=== PATIENT | male | born 1945 | race Caucasian/White ===

== ENCOUNTER → 2016-06-06 16:01 | Outpatient (CLI) | payer MEDICARE, OTHER ==
[2016-02-05 05:32] VITALS: BMI 30.2
[~2016-06-06 16:01] MED LIST: ACULAR 0.5 % OPH5 ML RIGHT EYE; BAYER CHEWABLE81 MG PO; IPRAT-ALBUT 0.5-3 ML UPD; PREDNISOLONE 110 ML RIGHT EYE; PROVENTIL HFA6.7 GM INH; SYMBICORT 16010.2 GM INH; ULTRAM50 MG PO
== END | disposition home or self-care (01) ==
LOC: D.CT 16:01
DX: R93.1 Abnormal findings on diagnostic imaging of heart and coronary circulation (principal)

== ENCOUNTER 2016-06-14 05:56 | Inpatient (IN) | payer MEDICARE, OTHER ==
[2016-06-13 14:50] LABS: HEMATOCRIT 50.2 % (42.0-54.0); HEMOGLOBIN 16.6 g/dL (13.5-17.5); MCH 31.4 pg (26.0-34.0); MCHC 33.1 g/dL (31.0-37.0); MCV 95.1 fL (80.0-100.0); MEAN PLATELET VOLUME 10.1 fL (7.4-10.4); RBC 5.28 10x6/uL (4.20-6.10); RDW 13.5 % (11.5-14.5); WBC 6.6 10x3/uL (4.8-10.8)
[2016-06-13 15:06] LABS: APPEARANCE CLEAR (CLEAR); BILIRUBIN NEGATIVE (NEGATIVE); COLOR YELLOW (YELLOW); GLUCOSE NEGATIVE (NEGATIVE); KETONE NEGATIVE (NEGATIVE); LEUKOCYTE ESTERASE NEGATIVE (NEGATIVE); NITRITE NEGATIVE (NEGATIVE); PROTEIN TRACE mg/dL (NEGATIVE); UROBILINOGEN NORMAL (NORMAL)
[2016-06-13 15:11] LABS: APTT 41.6 SECONDS (22.8-39.4); INR 1.13 (0.85-1.17); PROTIME 14.4 SECONDS (11.6-15.0)
[2016-06-13 15:14] LABS: ALBUMIN 3.9 g/dL (3.4-5.0); ANION GAP 10.1 mmol/L (8-16); BILIRUBIN - TOTAL 0.46 mg/dL (0.2-1.3); CALCIUM 8.6 mg/dL (8.5-10.1); CARBON DIOXIDE 30.7 mmol/L (21.0-32.0); CREATININE - SERUM 1.8 mg/dL (0.6-1.3); POTASSIUM - SERUM 4.8 mmol/L (3.5-5.1); PROTEIN - SERUM 7.5 g/dL (6.4-8.2)
[2016-06-14] VITALS (57 sets, daily range): BP systolic 100–149; BP diastolic 65–89; Ht 180.3 cm; Wt 99.1 kg
[~2016-06-14] VITALS: Ht 180.3 cm; Wt 99.1 kg
[~2016-06-14 05:56] MED LIST changes: -ACULAR 0.5 % OPH5 ML RIGHT EYE; -ULTRAM50 MG PO
--- NOTE | 2016-06-14 12:00 | NUR ---
FAMILY AT THE BEDSIDE AND UPDATED. PT VOICES NO CO AT TIME.
--- NOTE | 2016-06-14 13:47 | NUR ---
* Is the patient Alert and Oriented? Yes 0 * How many steps to enter\exit or inside your home? 1/2 STEP 0 * PCP DR PAK 0 * [facility] [address] * Preadmission Environment Home with Family 0 * ADLs Independent 0 * Equipment Nebulizer 0 * Other Equipment PATENT STATES HE BOUGHT HIS NEBULIZER 0 * List name and contact numbers for known caregivers / representatives who currently or will assist patient after discharge: SPOUSE: PARMJIT BAINS [phone] * Community resources currently utilized None 0 * Additional services required to return to the preadmission environment? No 0 * Can the patient safely return to the preadmission environment? Yes 0 * Has this patient been hospitalized within the prior 30 days at any hospital? No 0 Grand Total: 0 PATIENT STATES HE LIVES AT HOME WITH HIS , PARMJIT. HE IS INDEPENDENT IN HIS ADL'S. PATIENT STATES HIS PCP IS DR. PAK. HE GETS HIS MEDS FROM [facility] ON [address] PATIENT STATES HE HAS AN UPDRAFT MACHINE THAT HE PURCHASED. THERE IS ONLY 1/2 STEP TO ENTER HIS HOME. NO DISCHARGE NEEDS IDENTIFIED AT THIS TIME.
--- NOTE | 2016-06-14 15:00 | NUR ---
FAMILY AT BEDSIDE AND UPDATED.
[2016-06-14] MEDS ORDERED: ACULAR 0.5 % OPH5 ML RIGHT EYE (15:25)
--- NOTE | 2016-06-14 17:00 | NUR ---
SLEEPING NO DISTRESS NOTED. SR UP X 2. CALL LIGHT WITHIN REACH.
--- NOTE | 2016-06-14 19:45 | NUR ---
REPORT RECIEVED. ASSESSMENT COMPLETE PER PATRIZIA YIPT. VSS. PT AWAKE ALERT ORIENTED X4. O2 VIA NC 2L O2 SAT 98% RR 16 REGULAR STRONG PRODUCTIVE COUGH PRESENT BILAT ALL LOBES CLEAR. HEART S1S2 HR 90 NSR. BP 128/77 VIA R RADIAL ART LINE WITH GOOD WAVE FORM EXTREMETY PINK WITH GOOD SENSATION WRIST PROTECTOR ON. BS ACTIVE X4 NON TENDER. NO EDEMA X4 EXTREMETIES BILAT PEDAL PULSES PALP +2. BILAT TEDS SCD'S ON. R NECK YURIY DRAIN NOTED MINIMAL BLOODY DRAINAGE NOTED DRSG CDI SECURED. L SUBCLAV CVL PATENT REFER TO FLOW SHEET FOR INFUSIONS. VSS WILL CONTINUE TO MONITOR.
--- NOTE | 2016-06-14 21:16 | NUR ---
VSS NO NEW CHANGES NO VISITORS AT THIS TIME. WILL CONTINUE TO MONITOR.
--- NOTE | 2016-06-14 23:22 | NUR ---
REASSESSMENT COMPLETE PER FLOW SHEET. VSS WILL CONITNUE TO MONITOR.
[2016-06-15] VITALS (31 sets, daily range): BP systolic 102–150; BP diastolic 53–87
--- NOTE | 2016-06-15 01:20 | NUR ---
PRN TRAMADOL GIVEN FOR BACK PAIN. DENIES FURTHER NEEDS. WILL CONTINUE TO MONITOR.
--- NOTE | 2016-06-15 07:45 | NUR ---
ASSESSMENT PER FLOWSHEET DR SARKAR HERE. NEW ORDERS OBTAINED,
--- NOTE | 2016-06-15 13:00 | NUR ---
CVL DCD PER ORDER INSTRUCT PT TO LAY IN BED FOR 30 MINUTES TO ENSURE SITE DOES NOT BLEED.
[2016-06-15] MEDS ORDERED: ULTRAM50 MG PO (13:10)
--- NOTE | 2016-06-15 14:00 | NUR ---
DC INSTRUCTIONS GIVEN . VOICES NO QUESTIONS. DC INSTRUCTIONS GIVEN PER ROZINA ABOUT INCISION AND FU. RX FOR TRAMADOL GIVEN
--- NOTE | 2016-06-15 14:05 | NUR ---
LEFT VIA WC.
--- NOTE | 2016-06-18 13:50 | HP ---
PATIENT: ANNA BAINS MEDICAL RECORD: [id number] ACCOUNT: [id number] LOCATION:[facility] : 43 ADMISSION DATE: 06/14/16 HISTORY AND PHYSICAL EXAMINATION ANNA Hernandez (70yo, M) ID# [id number]. Date/Time06/09/2016 10:60XCBWA13/15/1944[facility] Dept.NPP_[place] [facility] ClinicProviderEDKYLAH SARKAR MDInsuranceMed Primary: [place] ([place]ARE) Insurance # : [id number] PCP : JENNIFER PAK Referring Provider Name : JENNIFER PAK Employer Name : [employer]\\ Med Secondary: [employer] (MEDICARE SUPPLEMENT) Insurance # : [id number] Referring Provider Name : JENNIFER PAK Employer Name : NONE Prescription: ARGSDIR - Member is eligible. Chief Complaint Followup: Thoracoabdominal aortic aneurysm Patient's Care Team Primary Care Provider (): JENNIFER PAK: [address] [place] [phone], , Referring Provider (): JENNIFER PAK: [address] [place] [phone], , Environmental Management Specialist: CHI CULLEN MD: [address] [place] [phone], , Patient's Pharmacies [place] [facility] (ERX): [address] [facility] [address], , [facility] [address] ([place]): [address] [facility] [address], , Vitals BP:120/60 sitting R arm 06/09/2016 11:06 amHR:80R/R 06/09/2016 11:06 amHt:5 ft 11 in 06/09/2016 10:51 amWt:218 lbs 06/09/2016 11:06 amBMI:30.4 06/09/2016 11:06 amAllergies Reviewed Allergies NKDAMedications Reviewed Medications Aspir- enteredKathy Wilsonipratropium-albuterol 0.5 mg-3 mg(2.5 mg base)/3 mL nebulization soln USE 1 VIAL IN NEBULIZER Q 6 H AND Q 4 H PRF CFFVRHRY35/10/16 filledsurescriptsprednisoLONE sodium phosphate 1 % eye drops05/03/16 filledArgOPEN Media TechnologiesSymbicort 160 mcg-4.5 mcg/actuation HFA aerosol inhaler Inhale 2 puff(s) twice a day by inhalation route.03/24/16 filledArgOPEN Media TechnologiestiZANidine 4 mg iabdoq57/22/16 filledArgLacrosse All Stars SystemsVentolin HFA 90 mcg/actuation aerosol inhaler Inhale 2 puff(s) every 4 hours by inhalation route as needed.03/24/16 [employer] Some medications listed in Documents: #[id number], #[id number] could not be added to this patient's chart. Please review these documents and add these medications to the patient's chart manually as needed. Vaccines Reviewed Vaccines Vaccine TypeDateAmt.RouteSiteLot #Mfr.Exp. DateDate HISTORY AND PHYSICAL [id number] ANNA BAINS on VISVIS GivenVaccinatorInfluenzainfluenza, high dose ehewxekv1290Ayielcbelzfbqcytdejsrnmx polysaccharide UQI2401/16/16pneumococcal conjugate PCV 13005/15/14Problems Reviewed Problems Polyp of colon Tobacco dependence syndrome Thoracoabdominal aortic aneurysm Smokers' cough Chronic obstructive lung disease Severe chronic obstructive pulmonary disease Multiple nodules of lung Dyspnea Family History Discussed Family History Mother- Malignant tumor of ovary ( age: 62) - Heart diseaseFather- Myocardial infarction ( age: 71)Brother- Hypertensive disorder ( age: 74) - [facility]- Cerebrovascular accident - LIVINGSocial History Discussed Social History Cardiology and General Family history of heart disease?: Y Smoking Status: Current every day smoker Smoker (1 PPD) High Cholesterol: Y Alcohol intake: None Caffeine intake: Occasional Surgical History Reviewed Surgical History tia 1998 Past Medical History Discussed Past Medical History Aneurysmn (specify): Y - Thoracic Heart Disease: Y - tia Notes: TIA 1998 Documents for Discussion N/A Screening None recorded. HPI Peripheral Vascular Disease Reported by patient. Location: back ("my lower back bothers me when I sit. I also have chest pain if I sit for a long time. I get nauseated and feel if I threw up I would feel better. Dr. Pak got the scan bec ause I was SOB."); " Quality: burning; "Dr. Cullen say last Monday f/u carotid doppler. CT done Monday. I don't know results. Dr. Cullen wants you to look at it." Severity: interferes with normal activity Onset/Timing: intermittent ("sitting") ROS ROS as noted in the HPI Physical Exam Patient is a 70-year-old male. HISTORY AND PHYSICAL [id number] ANNA BAINS Constitutional: General Appearance well nourished and developed and healthy-appearing. Level of Distress NAD. Ambulation ambulating normally. Cardiovascular: Apical Impulse not displaced or no thrill. Heart Auscultation normal s1 and s2; no murmurs, rubs, or gallops; and RRR. Arterial Pulses no abdominal aorta bruits, femoral bruits, or popliteal bruits and 2+ bilateral, carotid 2+ bilateral, femoral 2+ bilateral, popliteal 2+ bilateral, and dorsalis pedis diminished. Edema no edema and varicosities. Lungs: Repiratory Effort no dyspnea. Percussion no dullness or flatness and hyperresonance . Auscultation no wheezing, rhonchi, or rales / crackles and breathing sounds normal, good air movement, and CTA except as noted. Abdomen: Bowl Sounds normal. Inspection and Palpation no tenderness, guarding, masses, or rebound tenderness and soft and non-distended. Liver non-tender and no hepatomegaly. Spleen non-tender and no splenomegaly. Hernia none palpable. Ears, Nose, Throat: Hearing grossly normal hearing. Nose no external nose lesion. Lips, Teeth, and Gums no mouth or lip ulcers. Oropharynx: moist mucous membranes. Musculoskeletal System: Gait And Stance normal gait and stance. Digits and Nails normal nails and no cyanosis. Joints, Bones, and Muscles normal strength and movement of all extremities. Neurologic: Cranial Nerves grossly intact. Reflexes DTRs 2+ bilaterally throughout. Sensation grossly intact. Lymph Nodes: Lymph Nodes no cervical LAD, supraclavicular LAD, axillary LAD, or inguinal LAD. Eyes: Lids and Conjunctivae no discharge or pallor and non-injected. Pupils PERRLA. Cornea grossly intact. EOM EOMI. Lens clear. Sclerae non-icteric. Neck: Neck no masses or enlarged lymph nodes and supple, trachea midline, and carotid bruits (new Right carotid bruit). Thyroid no enlargement or nodules and non-tender. Skin: Inspection and Palpation no rash, lesions, ulcers, jaundice, or abnormal nevi. Assessment / Plan Right internal carotid artery stenosis severe Stable thoracoabdominal aneurysm 1. Bilateral carotid artery stenosis I65.23: Occlusion and stenosis of bilateral carotid arteries 2. Thoracoabdominal aortic aneurysm I71.6: Thoracoabdominal aortic aneurysm, without rupture Discussion Notes Patient would benefit from right carotid endarterectomy due to the severe ruptured plaque in his right carotid bulb and proximal internal carotid artery Continue medical therapy for thoracoabdominal aneurysm Macular degeneration is stable and Dr. Chavez cleared him for carotid endarterectomy Scheduled for next week right carotid endarterectomy HISTORY AND PHYSICAL [id number] BAINSANNA LOPEZ Return to Office to see Avery Sarkar MD at [facility] on or around 06/16/2016 Cj Chester MD for Office Visit 20 at [facility] on 10/19/2016 at 10:00 AM Avery Sarkar MD for Office Visit 15 at [facility] on 11/03/2016 at 09:00 AM Encounter Sign-Off Encounter signed-off by Avery Sarkar MD, 06/09/2016. AVERY SARKAR MD at 1350 CC: [id number] DICTATION DATE: 06/09/16 1045 GEOLOGICAL DRAFTER: KENNY 06/10/16 1505 DIS IN 06/15/16 [facility] [address] [place] [address]
--- NOTE | 2016-06-18 13:50 | OP ---
PATIENT NAME: ANNA BAINS MEDICAL RECORD: [id number] :41 LOCATION:[facility] D.2304 ADMISSION DATE:06/14/16 SURGEON: AYE SARKAR MD DATE OF OPERATION: 06/14/2016 SURGEON: Aye Sarkar MD ANESTHESIA: General endotracheal, Dr. Zapata. OPERATION PERFORMED: Right carotid endarterectomy with patch angioplasty. PREOPERATIVE DIAGNOSIS: Severe right internal carotid artery stenosis with ruptured plaque. POSTOPERATIVE DIAGNOSIS: Severe right internal carotid artery stenosis with ruptured plaque. INDICATION FOR OPERATION: Severe right internal carotid artery stenosis with ruptured plaque. FINDINGS AT OPERATION: There were no EEG changes with clamping or unclamping of the carotid artery. There was a large bulky ruptured plaque in the right carotid with debris within the ulceration. DESCRIPTION OF PROCEDURE: After informed consent, adequate preoperative medication and evaluation, the patient was brought to the operating room, placed on the table in the supine position. After induction of general endotracheal anesthesia and application of appropriate monitoring devices, the right neck and chest were prepped and draped in a sterile field, utilizing Betadine scrub, alcohol, and Betadine solution. A Betadine-impregnated drape was also used. An oblique incision was made in the skin crease. Dissection carried down the fascia. Hemostasis maintained with electrocautery. Facial vein was identified and divided. Utilizing sharp dissection, the common carotid, internal and external carotid arteries were dissected free from surrounding structures, protecting the neurological structures. The patient was given a calculated dose of heparin, after 3 minutes, clamps were applied. After 2 minutes, no EEG changes. The arteriotomy was made and extended with Harris scissors. Artery underwent endarterectomy sharply. Artery underwent extensive debridement and irrigation. Utilizing a vascular patch and running 7-0 Prolene, the arteriotomy was closed with patch angioplasty technique. All maneuvers to remove trapped air were performed. The clamps were removed sequentially. There were no EEG changes. The patient was given a calculated dose of protamine to reverse the heparin. Hemostasis was achieved, and a #7 Coy-Dueñas drain was left in the depth of wound and brought through the base of the neck. Neck was again irrigated. Instrument count and sponge count were correct times 2. Neck was closed in layers utilizing 3-0 Vicryl on the platysma, 5-0 subcuticular Monocryl on the skin. Sterile dressings were applied. The patient tolerated the procedure well and transferred to ICU in stable condition. TRANSINT:[id number] Voice Confirmation ID: [id number] DOCUMENT ID: [id number] OPERATIVE REPORT [id number] ANNA BAINS EDWARD MD at 1350 CC: [id number] DICTATION DATE: 06/14/16 1014 REPAIRER HELPER: 06/14/16 1033 DIS IN 06/15/16 [place] [id number] [place] [id number]
--- NOTE | 2016-07-16 10:49 | DS ---
PATIENT:ANNA LANDIS :41 MEDICAL RECORD: [id number] DISCHARGE SUMMARY ADMISSION DATE: 06/14/16 DISCHARGE DATE: 06/15/16 DISCHARGE DIAGNOSES: 1. Bilateral carotid artery stenosis. 2. Thoracoabdominal aortic aneurysm. 3. Exudative age-related macular degeneration. 4. Chronic obstructive pulmonary disease. 5. Peripheral arterial disease. DISCHARGE MEDICATIONS: Please see medical reconciliation form. DISPOSITION: The patient discharged home and has an appointment to see Dr. Natarajan in 2-3 weeks. HOSPITAL COURSE: Mr. Landis was admitted to the hospital and underwent right carotid endarterectomy with patch angioplasty. Postoperatively, he did well and neurologically intact. He was weaned from IV antihypertensive medications. At time of discharge, he is taking a diet and ambulating, neurologically intact. He has been given discharge instructions and wound precautions and will be seen as above. TRANSINT:[id number] Voice Confirmation ID: [id number] DOCUMENT ID: [id number] AYE NATARAJAN MD at 1049 CC: [id number] DICTATION DATE: 07/09/16 1319 SUPERVISOR FERTILIZER: 07/09/16 1416 DIS IN 06/15/16 [facility] [address] [place] [address]
== END 2016-06-15 14:46 | disposition home or self-care (01) | DRG 39 ==
LOC: D.ICU 05:56 → D.SDCHOLD 05:56 → D.ICU 08:56
PROVIDERS: ADMIT Internal Medicine Cardiovascular Disease
PROC: 03UH0JZ Supplement Right Common Carotid Artery with Synthetic Substitute, Open Approach (ICD-10-PCS; 2016-06-14)
PROC: 03CK0ZZ Extirpation of Matter from Right Internal Carotid Artery, Open Approach (ICD-10-PCS; principal; 2016-06-14 07:30)
DX: I65.21 Occlusion and stenosis of right carotid artery (principal); I71.6 Thoracoabdominal aortic aneurysm, without rupture; H35.3290 Exudative age-related macular degeneration, unspecified eye, stage unspecified; J44.9 Chronic obstructive pulmonary disease, unspecified; I73.9 Peripheral vascular disease, unspecified